=== PATIENT | female | born 1985 ===

== ENCOUNTER 2020-01-27 00:52 | Inpatient (IN) ==
[2020-01-27 01:38] LABS: ABS Basophils 0.1 10^3/ul (0-0.2); ABS Lymphocytes 1.6 10^3/ul (1.0-4.8); ABS Monocytes 0.8 10^3/ul (0-0.8); Eosinophil % 0.2 %; Hematocrit 36 % (35-47); Hemoglobin 12.1 g/dL (12.0-16.0); Lymphocyte % 9.7 %; Mean Corpuscular HGB Conc 34 g/dL (31-36); Mean Corpuscular Hemoglobin 30 pg (27-31); Mean Corpuscular Volume 87 fL (80-97); Mean Platelet Volume 7.6 fL (7.4-10.4); Platelet Count 240 10^3/uL (150-450); Red Cell Distribution Width 15 % (10-15); White Blood Count 16.3 10^3/uL (3.5-10.8)
[2020-01-27] MEDS ORDERED: Lactated Ringers 1000 ml BAG 1,000 ML IV ONE (01:47)
[2020-01-27] MEDS ORDERED: ceFOXitin 2 GM IVPREMIX (*) 2 GM/50 ML BAG IVPB ONE (01:47)
[2020-01-27] MEDS ORDERED: Morphine PF AMP (0.5MG/ML) 5 MG/10 ML AMP ONE (01:59)
[2020-01-27] MEDS ORDERED: Lactated Ringers 1000 ml BAG 1,000 ML IV SCH (02:00)
[2020-01-27] MEDS ORDERED: Midazolam 5 mg/5 ml VIAL 1 mg/ml 5 ml VIAL (5 mg) ONE (02:01)
[2020-01-27] MEDS ORDERED: fentaNYL 100 mcg/2 ml 50 MCG/ML VIAL ONE (02:01)
[2020-01-27] MEDS ORDERED: Ketamine HCL 50 mg/ml 10 ml VIAL (500 MG) ONE (02:01)
[2020-01-27] MEDS ORDERED: Naloxone 4 mg VIAL (10 ml) 2 MG in NS 0.9% 250 ml 250 ML IV PRN (02:43)
[2020-01-27] MEDS ORDERED: diPHENhydraMINE IV 50 MG/ML 1 ml VIAL (BENADRYL) IV PRN (02:43)
[2020-01-27] MEDS ORDERED: Naloxone 0.4 mg VIAL 0.4 mg/ml 1 ml VIAL IV PRN ×2 (02:43→02:47)
[2020-01-27] MEDS ORDERED: Scopolamine PATCH Remove NOTE PATCH OFF PRN (02:43)
[2020-01-27] MEDS ORDERED: Ondansetron 4 mg VIAL 2 MG/ML 2 ml VIAL IV PRN (02:43)
[2020-01-27] MEDS ORDERED: oxyCODONE/Acetamin 5/325 mg TAB PO PRN (02:43)
[2020-01-27] MEDS ORDERED: DiMENhydriNATE IV 50 mg/ml 1 ml VIAL IV PUSH PRN (02:43)
[2020-01-27] MEDS ORDERED: Prochlorperazine 5 mg/ml 2 ml VIAL (10 mg) IV PRN (02:43)
[2020-01-27] MEDS ORDERED: fentaNYL 100 mcg/2 ml 50 MCG/ML VIAL IV PRN (02:47)
[2020-01-27 02:50] LABS: Urine Benzodiazepine Screen None Detected (None Detect); Urine Opiates Screen None Detected (None Detect)
[2020-01-27] MEDS ORDERED: EPHEDrine (Pressors) 50 MG/ML VIAL ONE (02:50)
[2020-01-27] MEDS ORDERED: Prochlorperazine 5 mg/ml 2 ml VIAL (10 mg) ONE (02:50)
[2020-01-27] MEDS ORDERED: Ondansetron 4 mg VIAL 2 MG/ML 2 ml VIAL ONE (02:50)
[2020-01-27] MEDS ORDERED: Oxytocin 10 UNITS/ML 1 ML VIAL ONE (02:50)
[2020-01-27] MEDS ORDERED: Phenylephrine 40 mcg/mL 10mL (400mcg) SYRINGE ONE (02:50)
[2020-01-27] MEDS ORDERED: Dibucaine 1% OINT 28.35 GM TUBE PR PRN (03:40)
[2020-01-27] MEDS ORDERED: Witch Hazel PAD JAR TOPICAL PRN (03:40)
[2020-01-27] MEDS ORDERED: Glycerin ADULT 2.4 gm SUPP PR PRN (03:40)
[2020-01-28 07:36] LABS: ABS Lymphocytes 1.2 10^3/ul (1.0-4.8); ABS Monocytes 1.1 10^3/ul (0-0.8); Eosinophil % 0.1 %; Hematocrit 32 % (35-47); Hemoglobin 10.7 g/dL (12.0-16.0); Lymphocyte % 5.8 %; Mean Corpuscular HGB Conc 33 g/dL (31-36); Mean Corpuscular Hemoglobin 29 pg (27-31); Mean Corpuscular Volume 88 fL (80-97); Mean Platelet Volume 7.9 fL (7.4-10.4); Platelet Count 231 10^3/uL (150-450); Red Blood Count 3.65 10^6 /uL (3.70-4.87); Red Cell Distribution Width 16 % (10-15); White Blood Count 21.4 10^3/uL (3.5-10.8)
[2020-01-30 09:38] VITALS: BP 133/78
[2020-01-30] MEDS ORDERED: Varicella Virus Vaccine Live 0.5 ML VIAL SUBCUT ONE (10:05)
== END 2020-01-30 15:02 | disposition home or self-care (01) | DRG 788 ==
LOC: MCHOBOUT 00:52 → MCHOB 01:32
PROVIDERS: ADMIT Obstetrics & Gynecology; ATTEND Obstetrics & Gynecology